=== PATIENT | female | born 1975 | race Asian ===

== ENCOUNTER 2022-01-05 07:09 | Outpatient (CLI) | payer MEDICAID, SELFPAY ==
--- NOTE | 2022-01-05 07:15 | CRLHL7_ITS ---
For Patients: As a result of the Century Cures Act, medical imaging exams and procedure reports are released immediately into your electronic medical record. You may view this report before your referring provider. If you have questions, please contact your health care provider. INDICATION: Compared to CT 09/23/2021. TECHNIQUE: Ultrasound abdomen limited. Sonographic images of the right upper quadrant were obtained using shah-scale and color Doppler images. COMPARISON: CT abdomen and pelvis 09/23/2021. FINDINGS: Liver: Normal in size and echotexture. There is a hyperechoic mass in the right hepatic lobe measuring 3.0 x 2.1 x 2.2 cm which corresponds to the hypodensity on CT. No other liver lesions identified. Gallbladder: No stones or sludge. Normal wall thickness. No pericholecystic fluid. Common bile duct: 5 mm. Pancreas: Unremarkable. Right kidney: Normal in size measuring 10.7 x 5.1 x 4.3 cm. 10 mm simple right kidney cyst. Normal echotexture and cortex. No suspicious masses, stones, or hydronephrosis. Vasculature: Proximal abdominal aorta and IVC are unremarkable. IMPRESSION: Hyperechoic mass in the right hepatic lobe measuring 3.0 x 2.2 x 2.1 cm which corresponds to the hypodensity in the right hepatic lobe on CT. The finding is nonspecific on ultrasound but most likely represents a hemangioma. Confirmation could be made on post-contrast CT or MRI. Dictated by Reagan Arteaga MD @ 01/05/2022 8:05:48 AM (Electronically Signed)
== END 2022-01-05 07:10 | disposition home or self-care (01) ==
LOC: US 07:11
PROVIDERS: PCP Family Medicine; Visit Provider Internal Medicine Nephrology
DX: D18.03 Hemangioma of intra-abdominal structures (principal); R16.0 Hepatomegaly, not elsewhere classified
CPT/HCPCS: 76705

== ENCOUNTER 2022-07-27 09:33 | Outpatient (CLI) | payer MEDICAID, SELFPAY | END 2022-07-27 09:34 | disposition home or self-care (01) | LOC: NFLDREF 07-28 14:48 | PROVIDERS: PCP Family Medicine; Referring Provider Family Medicine; Visit Provider Internal Medicine Nephrology | DX: N20.0 Calculus of kidney (principal); N20.9 Urinary calculus, unspecified; R31.9 Hematuria, unspecified; R80.9 Proteinuria, unspecified | CPT/HCPCS: 80069; 82043; 82570; 87086; 87186 ==

== ENCOUNTER 2022-08-25 09:10 | Outpatient (CLI) | payer MEDICAID, SELFPAY | END 2022-08-25 09:11 | disposition home or self-care (01) | LOC: NFLDREF 08-27 07:20 | PROVIDERS: PCP Family Medicine; Referring Provider Family Medicine; Visit Provider Internal Medicine Nephrology | DX: N20.9 Urinary calculus, unspecified (principal); R31.9 Hematuria, unspecified; R80.9 Proteinuria, unspecified | CPT/HCPCS: 80069; 82043; 82570; 87086 ==

== ENCOUNTER 2022-11-13 08:06 | Outpatient (CLI) | payer MEDICAID, SELFPAY | END 2022-11-13 08:07 | disposition home or self-care (01) | LOC: NFLDREF 10:06 | PROVIDERS: PCP Family Medicine; Referring Provider Family Medicine; Visit Provider Internal Medicine Nephrology | DX: I10 Essential (primary) hypertension (principal); N20.9 Urinary calculus, unspecified; R31.9 Hematuria, unspecified; R80.9 Proteinuria, unspecified | CPT/HCPCS: 80069; 82043; 82570; 82728; 83540; 83550; 87086 ==

== ENCOUNTER 2022-11-16 08:00 | Outpatient (CLI) | payer MEDICAID, SELFPAY | END 2022-11-16 08:01 | disposition home or self-care (01) | LOC: NFLDREF 14:39 | PROVIDERS: PCP Family Medicine; Referring Provider Family Medicine; Visit Provider Internal Medicine Nephrology | DX: I10 Essential (primary) hypertension (principal); N20.9 Urinary calculus, unspecified; R31.9 Hematuria, unspecified; R80.9 Proteinuria, unspecified | CPT/HCPCS: 82570; 84156 ==

== ENCOUNTER 2023-02-06 14:25 | Outpatient (CLI) | payer MEDICAID, SELFPAY ==
--- NOTE | 2023-02-06 14:30 | CRLHL7_ITS ---
For Patients: As a result of the Cures Act, medical imaging exams and procedure reports are released immediately into your electronic medical record. You may view this report before your referring provider. If you have questions, please contact your health care provider. INDICATION: Hemangioma liver. COMPARISON: CT dated 12/21/2020 and 09/23/2021 as well as ultrasound dated 01/05/2022. TECHNIQUE: Multiphasic, multisequence MRI of the abdomen without and with contrast. 15 cc of Dotrarem administered intravenously. FINDINGS: Noncirrhotic liver morphology. No definite hepatic steatosis. The lesion seen in the subcapsular region of the right hepatic lobe indeed represents a hemangioma measuring approximately 2.4 x 1.2 cm with classic features. No suspicious liver lesions. Bilateral mammoplasty change. Patent portal and hepatic veins. Patent splenic and mesenteric veins. Cyst in the upper pole right kidney. No hydronephrosis. No abdominal aortic aneurysm. The IVC is patent. No splenomegaly. Visualized bowel is nondistended. No suspicious pancreatic abnormality. No pancreatic ductal dilatation. No intra or extrahepatic biliary ductal dilatation. The gallbladder is nondistended, no gallstones. No suspicious adenopathy. Bone marrow signal appears normal. IMPRESSION: The liver lesion seen has classic features for a hemangioma. No follow-up needed. Dictated by Tha Barron MD @ 02/06/2023 10:19:20 PM (Electronically Signed)
== END 2023-02-06 14:26 | disposition home or self-care (01) ==
PROVIDERS: PCP Family Medicine; Visit Provider Internal Medicine Nephrology
DX: D18.03 Hemangioma of intra-abdominal structures (principal)
CPT/HCPCS: 74183; A9575

== ENCOUNTER 2023-03-20 18:22 | Emergency (ER) | payer MEDICAID, SELFPAY ==
[2023-03-20] VITALS (14 sets, daily range): BP systolic 96–133; BP diastolic 65–88; PULSE 66–80; RESP 18; TEMP 36.4; O2SAT 96–99; BMI 24.4
--- NOTE | 2023-03-20 18:54 | CRLHL7_ITS ---
For Patients: As a result of the Century Cures Act, medical imaging exams and procedure reports are released immediately into your electronic medical record. You may view this report before your referring provider. If you have questions, please contact your health care provider. INDICATION: Chest discomfort. TECHNIQUE: Chest 2 views. COMPARISON: None. FINDINGS: Cardiovascular and mediastinum: Heart size and vasculature are normal in caliber and appearance. Lungs and pleural spaces: Lungs are clear. No sign of infiltrate or mass. No sign of pleural effusion. No pneumothorax. Bones and soft tissues: No significant findings. IMPRESSION: No acute or significant findings. Dictated by Jaguar Saenz MD @ 03/20/2023 8:51:10 PM (Electronically Signed)
[2023-03-20 19:22] LABS: Basophils Absolute Auto 0.06 K/uL (0.00-0.30); Basophils Percent Auto 1.1 % (0.0-3.0); Eosinophils Absolute Auto 0.35 K/uL (0.00-0.50); Eosinophils Percent Auto 6.6 % (0.0-7.0); Hematocrit 39.7 % (33.0-51.0); Hemoglobin* 12.8 gm/dL (12.0-16.0); Immature Granulocytes Abs Auto 0.01 K/uL (0.00-0.30); Immature Granulocytes Pct Auto 0.2 %; Lymphocytes Absolute Auto 1.73 K/uL (0.90-2.90); Lymphocytes Percent Auto 32.8 % (20-44); Mean Corpuscular HGB Conc 32 gm/dL (32-36); Mean Corpuscular Hemoglobin 30 pg (26-34); Mean Corpuscular Volume 92 fL (80-100); Monocytes Percent Auto 5.3 % (0.0-11.0); Neutrophils Absolute Auto 2.85 K/uL (1.7-7.0); Platelet Count* 228 K/uL (140-440); RDW Coefficient of Variation % 11.6 % (11.5-15.5); Red Blood Count 4.33 m/uL (4.00-5.20); White Blood Count* 5.28 K/uL (4.50-11.00)
--- NOTE | 2023-03-20 19:27 | ED_ITS ---
HPI - Chest Pain General Date Seen: 03/20/23 Chief Complaint: Chest Pain Stated Complaint: pressure on heart Time Seen by Provider: 03/20/23 18:36 Source: patient Mode of arrival: ambulatory Limitations: no limitations History of Present Illness HPI narrative: Patient is a 47-year-old female presenting to emergency department for chest palpitations. She states occasionally she will have increased chest pressure for short amount of time. It comes and goes. Has been going on for about 2 weeks. States he has never had this issue before. States he was random and not associated with increased exertion. No associated shortness of breath. Denies fevers, chills, weakness, numbness, lightheadedness, dizziness, abdominal pain. She is concerned because her family has a long history of heart disease with her grandmother had a heart attack before the age of 55. Patient does currently see a payroll and benefits coordinator for proteinuria but otherwise is not seeing a primary care provider. No other concerns at this time Related Data Previous Rx's Medication Instructions Recorded lisinopril 5 mg tablet 5 mg PO QDAY #30 tabs 08/01/22 Allergies Allergy/AdvReac Type Severity Reaction Status Date / Time No Known Allergies Allergy Unknown Verified 03/20/23 18:30 Review of Systems Status of ROS Reports: 10 or more systems reviewed and unremarkable except as noted in History and below PFSH PFS Social History Smoking Status: Never smoker How often do you have a drink containing alcohol: 2-3 times a week How often do you have six or more drinks on one occasion: Monthly AUDIT-C Alcohol total score: 5 Non-prescribed substance use: denies use Exam Narrative Exam Narrative: Const: Well-nourished, Well-developed, in no distress Eyes: PERRL, no conjunctival injection, and symmetrical lids HENT: Atraumatic external nose and ears. Moist mucous membranes. Neck: Symmetric, trachea midline, No thyromegaly. CVS: RRR, No murmurs or gallops. Peripheral pulses 2+ and equal in all extremities RESP: Unlabored respiratory effort. Clear to auscultation bilaterally. GI: Nontender/Nondistended, No rebound or guarding. MSK:Extremities w/o deformity, Normal Active ROM Skin: Warm, Dry. No rashes or lesions. Neuro: Normal Muscle tone, No focal neurological deficits. Psych: Awake, Alert, & Oriented x3. Appropriate mood and affect. Const Vital Signs, click to edit/add: Vital Signs - 24 hr 03/20/23 18:27 03/20/23 19:24 03/20/23 19:30 Temperature 97.6 F Pulse Rate 75 70 Pulse Rate [Pulse Oximeter] 77 Respiratory Rate 18 Blood Pressure Blood Pressure [Right Upper Arm] 133/86 Pulse Oximetry 99 96 97 Oxygen Delivery Method Room Air 03/20/23 19:31 03/20/23 19:32 03/20/23 19:45 Temperature Pulse Rate 75 75 66 Pulse Rate [Pulse Oximeter] Respiratory Rate Blood Pressure 115/82 Blood Pressure [Right Upper Arm] Pulse Oximetry 97 96 98 Oxygen Delivery Method 03/20/23 20:00 03/20/23 20:01 03/20/23 20:15 Temperature Pulse Rate 71 72 77 Pulse Rate [Pulse Oximeter] Respiratory Rate Blood Pressure 116/77 Blood Pressure [Right Upper Arm] Pulse Oximetry 96 97 96 Oxygen Delivery Method 03/20/23 20:30 03/20/23 20:31 03/20/23 20:45 Temperature Pulse Rate 80 80 80 Pulse Rate [Pulse Oximeter] Respiratory Rate Blood Pressure 121/88 Blood Pressure [Right Upper Arm] Pulse Oximetry 97 97 98 Oxygen Delivery Method Course Vital Signs Vital signs: Initial Vital Signs Temperature 97.6 F 03/20/23 18:27 Temperature Source Temporal Artery Scan 03/20/23 18:27 Pulse Rate 77 03/20/23 18:27 Pulse Rhythm Regular 03/20/23 18:27 Respiratory Rate 18 03/20/23 18:27 Blood Pressure 133/86 03/20/23 18:27 Blood Pressure Mean 101 03/20/23 18:27 Blood Pressure Position Sitting 03/20/23 18:27 Pulse Oximetry 99 03/20/23 18:27 Oxygen Delivery Method Room Air 03/20/23 18:27 Vital Signs Temperature 97.6 F 03/20/23 18:27 Pulse Rate 77 03/20/23 18:27 Respiratory Rate 18 03/20/23 18:27 Blood Pressure 133/86 03/20/23 18:27 Pulse Oximetry 99 03/20/23 18:27 Oxygen Delivery Method Room Air 03/20/23 18:27 Temperature 97.6 F 03/20/23 18:27 Pulse Rate 80 03/20/23 20:45 Respiratory Rate 18 03/20/23 18:27 Blood Pressure 121/88 03/20/23 20:31 Pulse Oximetry 98 03/20/23 20:45 Oxygen Delivery Method Room Air 03/20/23 18:27 MDM - Chest Pain MDM Narrative Medical decision making narrative: Patient is a 47-year-old female presenting emergency department for chest pressure. She is having no associated shortness of breath so PE or pneumothorax seem unlikely. The pain is intermittent is not associated with exertion. ACS seems unlikely since has been going on for a week with minimal discomfort. We will do a CBC, BMP, troponin. Also ordered chest x-ray and EKG. Chest x-ray showed no acute abnormalities. Troponin within normal limits. BMP and cbc showed no concerning abnormalities. Her sodium was slightly low at 131 a BUN is slightly elevated 28 but she has seen a payroll and benefits coordinator for her proteinuria. EKG within normal limits. No signs at this time of pneumothorax, pneumonia, ACS. She is otherwise doing well the heart score of 1. She can be discharged home and she agrees with this plan. Lab Data Labs: Lab Results 03/20/23 03/20/23 Range/Units 18:55 19:10 WBC 5.28 (4.50-11.00) K/uL RBC 4.33 (4.00-5.20) m/uL Hgb 12.8 (12.0-16.0) gm/dL Hct 39.7 (33.0-51.0) % MCV 92 (80-100) fL MCH 30 (26-34) pg MCHC 32 (32-36) gm/dL RDW Coeff of [place] 11.6 (11.5-15.5) % Plt Count 228 (140-440) K/uL Neut % (Auto) 54.0 (42.0-72.0) % Lymph % (Auto) 32.8 (20-44) % [place] % (Auto) 5.3 (0.0-11.0) % Eos % (Auto) 6.6 (0.0-7.0) % Baso % (Auto) 1.1 (0.0-3.0) % Neut # (Auto) 2.85 (1.7-7.0) K/uL Lymph # (Auto) 1.73 (0.90-2.90) K/uL [place] # (Auto) 0.30 (0.00-0.90) K/UL Eos # (Auto) 0.35 (0.00-0.50) K/uL Baso # (Auto) 0.06 (0.00-0.30) K/uL Abs Immat Gran (auto) 0.01 (0.00-0.30) K/uL Imm/Tot Granulo (auto) 0.2 % Sodium 131 L (135-149) mmol/L Potassium 4.3 (3.6-5.1) mmol/L Chloride 103 (96-114) mmol/L Carbon Dioxide 28 (20-32) mmol/L Anion Gap 0 L (7-15) mEq/L BUN 28 H (5-24) mg/dL Creatinine 0.7 (0.5-1.5) mg/dL Estimated Creat Clear 72.13 Estimated GFR 108 ml/min Glucose 110 (60-115) mg/dL Calcium 9.2 (8.4-10.6) mg/dL POC Troponin I 0.00 L (0.01-0.04) ng/ml Imaging Data Chest x-ray: Radiologist's impression: No acute or significant findings. Dictated by Jaguar Saenz MD @ 03/20/2023 8:51:10 PM ECG Data Attestation: I personally reviewed and interpreted this ECG as follows: Prior ECG tracings: not available for review Interpretation: Normal sinus rhythm with a rate of 71 beats per minute, normal intervals, normal axis, no ST or T-wave abnormalities Discharge Plan Discharge Clinical Impression: Atypical chest pain Patient Disposition: Home, Self-Care Condition: Stable Instructions: Noncardiac Chest Pain (ED) Additional Instructions: We will give the information is still a primary care. Set up an appointment with them. Return to the emergency department for new or worsening symptoms Prescriptions: No Action lisinopril 5 mg tablet 5 mg PO QDAY Qty: 30 0RF Follow Up/Referrals: Donald Cormier MD [Primary Care Provider] - Stand Alone Forms: [facility] Info Instructions
[2023-03-20 19:31] LABS: Slide Review Reflex No
[2023-03-20 19:37] LABS: Chloride* 103 mmol/L (96-114); Potassium* 4.3 mmol/L (3.6-5.1); Sodium* 131 mmol/L (135-149)
[2023-03-20 19:40] LABS: Anion Gap 0 mEq/L (7-15); Blood Urea Nitrogen* 28 mg/dL (5-24); Calcium* 9.2 mg/dL (8.4-10.6); Carbon Dioxide* 28 mmol/L (20-32); Creatinine* 0.7 mg/dL (0.5-1.5); Est. Creatinine Clearance* 72.13; Estimated Glomerular Filt Rate 108 ml/min; Glucose* 110 mg/dL (60-115)
== END 2023-03-20 21:27 | disposition home or self-care (01) ==
PROVIDERS: Emergency Provider Student in an Organized Health Care Education/Training Program; PCP Family Medicine
DX: R07.89 Other chest pain (principal)
CPT/HCPCS: 36415; 71046; 80048; 84484; 85025; 93005; 99283; 99284; 99285